=== PATIENT | female | born 2000 | race Caucasian/White ===

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

== ENCOUNTER 2021-06-27 13:18 | Outpatient (REF) | payer OTHER, SELFPAY ==
[2021-06-27 14:19] LABS: COVID-19 Test Negative (Negative)
== END 2021-06-27 13:19 | disposition home or self-care (01) ==
LOC: HO.LAB 13:18
PROVIDERS: Visit Provider Internal Medicine
DX: Z20.822 Contact with and (suspected) exposure to COVID-19 (principal)
CPT/HCPCS: 36415; 87635; C9803

== ENCOUNTER 2021-07-01 11:55 | Outpatient (REF) | payer OTHER, SELFPAY ==
[2021-07-01 12:16] LABS: COVID-19 Test Negative (Negative); IDNOW Serial# 16C4AD1C
== END 2021-07-01 11:56 | disposition home or self-care (01) ==
LOC: HO.LAB 11:55
PROVIDERS: Visit Provider Internal Medicine
DX: Z20.822 Contact with and (suspected) exposure to COVID-19 (principal)
CPT/HCPCS: 36415; 87635; C9803

== ENCOUNTER 2023-07-21 08:26 | Outpatient (REF) | payer OTHER, SELFPAY ==
[2023-07-22 10:12] LABS: Influenza A PCR NEGATIVE (Negative); Influenza B PCR NEGATIVE (Negative); Resp Syncy Virus RNA Qual PCR NEGATIVE (Negative); SARS COV2 PCR INHOUSE NEGATIVE (Negative)
== END 2023-07-21 08:27 | disposition home or self-care (01) ==
LOC: HO.LNP 08:26
PROVIDERS: Visit Provider Nurse Practitioner Primary Care
DX: Z11.52 Encounter for screening for COVID-19 (principal); J06.9 Acute upper respiratory infection, unspecified
CPT/HCPCS: 0241U

== ENCOUNTER 2023-07-21 09:09 | Outpatient (AMB) | payer OTHER, SELFPAY ==
--- NOTE | 2023-07-21 11:36 | AM.OFFWIN_ITS ---
Intake Vital Signs 07/21/23 11:44 BP 106/62 Blood Pressure Location Rt brachial Position Sitting Pulse 108 H Pulse Source Pulse Oximeter Temp 97.8 F Temp Source Oral Pulse Oximetry (%) 99 Oxygen Delivery Method Room Air Intake Visit Reasons: [employer] MDM [employer]CH[employer], cough, congestion, ear pain([phone]) Intake Note: pt is here for c.o cough, congestion, ear pain x4 days Patient Tobacco Use Status: Current everyday Tobacco user Allergies No Known Allergies Allergy (Verified 07/21/23 11:36) Do you need a note to return to daycare/school/sports/work: Yes HPI HPI Comments History of Present Illness Details Patient is a 22-year-old female in today for a sick visit. Patient has had symptoms of sore throat, cough, headache, ear fullness x4 days. Patient has used [id number] DayQuil and NyQuil with some relief. She believe she started to feel worse after using a Neti pot. Denies travel or other sick home. Patient has a past medical history significant for anxiety. [facility] Social History Patient Tobacco Use Status: Current everyday Tobacco user Review of Systems Const Details: Constitutional : No Weight loss, No Fever, No Chills, No Fatigue, No Malaise ENT/Mouth : Admits sore throat, No Rhinorrhea Eyes: No Eye Pain, No Swelling, No Redness Cardiovascular : No Chest Pain, No SOB, No Dyspnea on Exertion, No Orthopnea, No Edema, No Palpitations Respiratory : Admits Cough, No Sputum, No Wheezing Gastrointestinal : No Nausea, No Vomiting, No Diarrhea, No Constipation, No abdominal Pain, No Hematochezia, No Melena Genitourinary : No Dysuria, No Urinary Frequency, No Hematuria, Musculoskeletal : No joint pain, No Myalgias, No Joint Swelling Neuro : No Weakness, No Numbness, No Dizziness, No Headache Psych : No Anxiety/Panic, No Depression Heme/Lymph: No Bruising, No Bleeding,No Lymphadenopathy Endocrine : No Polyuria, No Polydipsia All other systems reviewed and are negative Physical Exam Vital Signs: Last Vital Signs Temp 97.8 F 07/21/23 11:44 Pulse 108 H 07/21/23 11:44 BP 106/62 07/21/23 11:44 Pulse Ox 99 07/21/23 11:44 Oxygen Delivery Method Room Air 07/21/23 11:44 Patient's pulse 98 on physical exam. Vital signs have been reviewed and are stable. Const Other: Appearance: Alert.? Oriented X3.? No acute distress.? Head: Normocephalic, atraumatic, no step-offs or deformities Eyes: Pupils equal, round and reactive to light.? ENT: Pharynx cobblestoned. TM intact, pearly nation. ? Neck: Positive lymphadenopathy.? Neck supple.?Full ROM CVS: Normal heart rate and rhythm.? Pulses normal.? Respiratory: No respiratory distress.? Breath sounds normal.? Neuro: Oriented X 3.? No motor deficit.? No sensory deficit. CN 2-12 intact Results Reviewed Results Reviewed: Will call patient with swab result Assessment & Plan Assessment & Plan (1) Upper respiratory infection: Comment: Patient will be given prednisone and benzonatate today to be taken as prescribed. Patient has been educated the side effects of these medications. Patient agrees this plan Code(s): J06.9 - Acute upper respiratory infection, unspecified Qualifiers: URI type: unspecified URI Qualified Code(s): J06.9 - Acute upper respiratory infection, unspecified Plan: Take your medications as prescribed. If you were prescribed antibiotics today, it is important that you take your medication to their entirety, do not skip any doses, do not finish them early. Follow-up with your primary care provider this week. Return to the emergency department with new or worsening symptoms. Such as fevers, chills, chest pain, shortness of breath, nausea, vomiting, dizziness, headache, vision changes, lethargy In case of emergency call 911 Plan Patient has been instructed to follow-up with PCP Orders: Orders SARS-CoV2/FLU/RSV Today J06.9 - Acute upper respiratory infection, unspecified Coding Level of Care Code New Pt Level 4 (58923) Diagnoses Upper respiratory tract infection, unspecified type J06.9 URI type: unspecified URI Time Spent (min) 15
[2023-07-21 11:44] VITALS: BP 106/62; PULSE 108; TEMP 36.6; O2SAT 99
== END 2023-07-21 13:09 | disposition home or self-care (01) ==
PROVIDERS: Visit Provider Nurse Practitioner Primary Care
DX: J06.9 Acute upper respiratory infection, unspecified (principal)
CPT/HCPCS: 99204